=== PATIENT | male | born 1930 | race Caucasian/White ===

== ENCOUNTER → 2019-12-20 | Outpatient (CLI) | payer MEDICARE ==
--- NOTE | 2019-12-20 09:19 | RAD ---
Chest, PA and Lateral: Technique: PA and lateral views of the chest were obtained. History: Cough, congestion. Comparison: None. Findings: Moderate cardiomegaly. Median sternotomy wires identified. Changes of CABG. Faint airspace opacities identified in the bibasilar lungs. Moderate degenerative changes thoracic spine IMPRESSION: 1. Faint airspace opacities identified in the bibasilar lungs likely atelectasis or infiltrates. Follow-up to resolution. Electronically signed by: Amanuel Joseph MD (12/20/2019 9:16 AM) [id number]
== END | disposition home or self-care (01) ==
LOC: CT 08:41
PROVIDERS: ATTEND Nurse Practitioner Adult Health
DX: J98.4 Other disorders of lung (principal); I51.7 Cardiomegaly; J20.8 Acute bronchitis due to other specified organisms
CPT/HCPCS: 71046

== ENCOUNTER → 2020-09-28 | Outpatient (CLI) | payer MEDICARE ==
--- NOTE | 2020-09-28 15:43 | RAD ---
XR CHEST 2V History: Reason: SHORT OF BREATH, VQ SCAN / Spl. Instructions: / History: Comparison: Two-view chest, December 20, 2019. Findings: CABG changes. Stable moderate cardiomegaly. The pulmonary vasculature is congested. There is probably scarring in the lung bases. No focal airspace disease is seen. No pleural effusion or pneumothorax i s seen. There is no acute bone abnormality. 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 IMPRESSION: 1. Pulmonary vascular congestion. 2. Stable moderate cardiomegaly. Electronically signed by: Tai Diaz MD (09/28/2020 3:40 PM) [id number]
--- NOTE | 2020-09-28 15:47 | RAD ---
NUCLEAR MEDICINE PERFUSION ONLY SCAN History: Dyspnea, abnormal lab values. Comparison: Two-view chest September 28, 2020 and December 20, 2019. Technique: Perfusion portion performed after intravenous administration of 5.5 mCi Technetium 99m MAA . Multiple projection planar images of the lungs were obtained. Findings: Ventilation imaging is not performed due to aerosolized droplet precautions. Perfusion images demonstrate no segmental perfusion defects. IMPRESSION: Normal pulmonary perfusion. Negative for pulmonary embolism. Electronically signed by: Tai Diaz MD (09/28/2020 3:44 PM) [id number]
== END ==
LOC: NM 10:36
PROVIDERS: ATTEND Family Medicine
DX: J98.4 Other disorders of lung (principal); R09.89 Other specified symptoms and signs involving the circulatory and respiratory systems; R79.89 Other specified abnormal findings of blood chemistry; R06.02 Shortness of breath; I51.7 Cardiomegaly
CPT/HCPCS: 71046; 78580; A9540; 96374

== ENCOUNTER → 2020-10-20 | Outpatient (CLI) | payer MEDICARE, OTHER ==
--- NOTE | 2020-10-20 15:00 | CARD ---
MR#: [id number] Date of Study: 10/20/2020 Ordering Physician: TITO MONTANA, Referring Physician: TITO MONTANA, Tech: Rosa Bruno APPROVED REPORT EXAM: Two-dimensional and M-mode echocardiogram with Doppler and color Doppler. Other Information Quality : GoodHR: 77bpm INDICATION Atrial Fibrillation Surgery/Intervention CABG: RISK FACTORS Hypertension Hyperlipidemia 2D DIMENSIONS Left Atrium(2D)5.4 (1.6-4.0cm)IVSd1.3 (0.7-1.1cm) Aortic Root(2D)3.7 (2.0-3.7cm)LVDd5.6 (3.9-5.9cm) LVOT Diameter2.2 (1.8-2.4cm)PWd1.1 (0.7-1.1cm) LVDs4.4 (2.5-4.0cm)FS (%) 20.7 % SV63.5 mlLVEF(%)41.7 (>50%) Aortic Valve AoV Peak Michael.124.0cm/sAoV VTI26.6cm AO Peak GR.6.1mmHgLVOT Peak Michael.79.2cm/s LVOT VTI 15.81cmAO Mean GR.4mmHg TAYLOR (VMAX)2.00ai4KEC (VTI)2.21cm2 AI P 1/2 Aake1052zc Mitral Valve MV E Hlzwugvr82.7cm/sMV DECEL [id number] MV A Iufmwvqy57.4cm/sE/A Ratio2.5 Pulmonary Valve PV Peak Rhnewcas69.9cm/sPV Peak Grad.2mmHg Tricuspid Valve TR P. Kpaffdew325ih/sRAP [id number] TR Peak Gr.75tgHaLMDS36skOi LEFT VENTRICLE The left ventricle is normal size. There is mild to moderate concentric left ventricular hypertrophy. Severe hypokinesis of base to mid inferior and posterior posada. The Ejection Fraction is 35-40%. RIGHT VENTRICLE The right ventricle is mildly dilated. There is normal right ventricular wall thickness. ATRIA The left atrium is moderately dilated. The right atrium is moderately dilated. The interatrial septum is intact with no evidence for an atrial septal defect or patent foramen ovale as noted on 2-D or Do ppler imaging. AORTIC VALVE The aortic valve is thickened but opens well. Doppler and Color Flow revealed trace aortic regurgitat ion. There is no significant aortic valvular stenosis. MITRAL VALVE The mitral valve is normal in structure and function. There is no evidence of mitral valve prolapse. There is no mitral valve stenosis. Doppler and Color-flow revealed mild mitral regurgitation. TRICUSPID VALVE The tricuspid valve is normal in structure and function. Doppler and Color Flow revealed mild tricusp id regurgitation with an estiamted PAP of 31 mmHg. There is no tricuspid valve stenosis. PULMONIC VALVE The pulmonic valve is not well visualized. Doppler and Color Flow revealed trace pulmonic valvular re gurgitation. GREAT VESSELS The aortic root is normal in size. The IVC is normal in size and collapses >50% with inspiration. PERICARDIAL EFFUSION There is no evidence of significant pericardial effusion. Critical Notification Critical Value: No <Conclusion> Severe hypokinesis of base to mid inferior and posterior posada. The Ejection Fraction is 35-40%. The left atrium is moderately dilated. Mild mitral regurgitation. Mild tricuspid regurgitation with an estiamted PAP of 31 mmHg. There is no evidence of significant pericardial effusion. Signed by : Edwin Ennis, Electronically Approved : 10/20/2020 14:59:58
== END ==
LOC: ECHO 10:51
PROVIDERS: ATTEND Nuclear Medicine Nuclear Cardiology
DX: I08.1 Rheumatic disorders of both mitral and tricuspid valves (principal); I25.5 Ischemic cardiomyopathy
CPT/HCPCS: 93306

== ENCOUNTER 2021-04-05 17:50 | Inpatient (IN) | payer MEDICARE, OTHER ==
[~2021-04-05] VITALS: Ht 182.9 cm; Wt 90.4 kg
[2021-04-05] MEDS ORDERED: IV RINGERS SOLUTION,LACTATED 1,000 ML IV ONE ×2 (18:15→20:00)
--- NOTE | 2021-04-05 18:45 | PHYS DOC ---
Adult General Chief Complaint Chief Complaint: ALTERED MENTAL STATUS HPI HPI Patient is an 89-year-old male with a past medical history significant for RI, quadruple bypass in the , CHF, hypertension, hyperlipidemia, probable undiagnosed dementia who presents with family for chief complaint of confusion. States that earlier in the day with the family he had had a couple drinks of bourbon and a glass of wine. States that after the first 2 drinks of bourbon he was having trouble walking and was considerably more confused than usual. States today to help into the kitchen and then help him to the chair. States he occasionally drinks bourbon and has never acted like this before. States he is taking all his medications as prescribed and daughter handles medications. Denies any recent traumas, travels, illnesses, fevers, chest pain, shortness of breath, dysuria, hematuria, blood in the stool, nausea, vomiting. States has been eating and drinking normally for him. States he is making urine and stool normally for him. Review of Systems Review of Systems Review of systems otherwise unremarkable except noted in HPI Current Medications Current Medications Current Medications Medications (Trade) Dose Ordered Sig/Ketty Start Time Stop Time Status Last Admin Dose Admin Lactated Ringer's 1,000 ml @ 1,000 mls/hr 1X ONCE 04/05/21 18:15 04/05/21 19:14 UNV Physical Exam Physical Exam Constitutional: Well developed, well nourished, no acute distress, non-toxic appearance. [] HENT: Normocephalic, atraumatic, oropharynx moist, no oral exudates, Eyes: PERRLA, EOMI, conjunctiva normal, no discharge. [] Neck: Normal range of motion, no tenderness, supple, no stridor. [] Cardiovascular: Regular rate, irregular rhythm, systolic murmur Lungs & Thorax: Bilateral breath sounds with mild global Rales but good chest movement and good air movement Abdomen: Bowel sounds normal, soft, no tenderness, no masses, no pulsatile masses. [] Skin: Warm, dry, no erythema, no rash. [] Back: No tenderness, no CVA tenderness. [] Extremities: Neurovascular intact, no tenderness, no cyanosis, no clubbing, ROM intact, no edema. [] Neurologic: GCS of 15, alert and oriented to person and place but not time, able to sit and stand but seems off balance when walking. Psychologic: Affect normal, judgement normal, mood normal. [] Current Patient Data Lab Results Laboratory Tests Test 04/05/21 18:01 Glucose (Fingerstick) 183 mg/dL (70-99) H EKG EKG [] Radiology/Procedures Radiology/Procedures []ead CTA: ICA: No occlusion. Moderate calcified plaque within the carotid siphons. Mild multifocal narrowing. MCA: No stenosis, occlusion or aneurysm. TESFAYE: No stenosis, occlusion or aneurysm. SQL SSIS DEVELOPER: No stenosis, occlusion or aneurysm. Basilar artery: No stenosis, occlusion or aneurysm. Distal vertebral arteries: No stenosis, occlusion or aneurysm. Mild atheromatous plaque. Patent superior sagittal, straight, transverse and sigmoid venous sinuses. CT angiogram neck: Aortic arch: Mild atheromatous plaque within the aortic arch and branch vessels. Common carotid arteries: No stenosis, occlusion or dissection. Internal carotid arteries: Moderate atheromatous plaque within the left and mild within the right carotid bifurcations. Less than 50 percent narrowing of the proximal internal carotid arteries, left greater than right. No occlusion. External carotid arteries: Patent Vertebral arteries: Mild narrowing of the left vertebral artery origin due to calcified plaque. Imaged lung apices are unremarkable. Iatrogenic gas within the venous system. Postoperative changes right carotid endarterectomy. Enlarged right paratracheal lymph node measures 1.4 x 1.4 cm. Bones: Multilevel cervical spondylosis with advanced facet arthropathy. No high- grade canal narrowing. Multilevel neuroforaminal narrowing. Intervertebral fusion C3-C4 and C5-C6. Impression: 1. No arterial stenosis or occlusion within the head or neck. 2. Enlarged right peritracheal lymph node. Recommend follow-up. Electronically signed by: Ilya Taylor DO (04/05/2021 7:56 PM) [facility] Findings: Lower chest: Bilateral lower lobe bronchiectasis with fibrotic changes and grou ndglass opacities. Cardiomegaly. Coronary artery calcifications. Abdomen and pelvis: The liver, spleen, adrenal glands, and pancreas are unremarkable. Prior cholecystectomy. No biliary ductal dilatation. Small hypodense left mid renal lesion measures 0.4 cm (series 2 image 64). Right mid renal hypodense lesion measures 1.2 cm. Nonobstructing right intrarenal calculus. No hydronephrosis. Outpouching of the urinary bladder inferiorly into the urethra. Colonic diverticulosis. Normal appendix. No evidence of bowel obstruction. No pathologic lymphadenopathy. No ascites. Asymmetric enlargement of the right seminal vesicle. The prostate is enlarged measures 4.8 x 4.0 cm. Atheromatous plaque throughout the aorta and branch vessels. Bones: Multilevel lumbar spondylosis most prominent L4-5. Grade 1 anterolisthesis L4 on L5. Sclerotic lesion within the anterior sacrum measures 1.5 x 0.9 cm. Impression: 1. No acute intra-abdominal or pelvic pathology. 2. Sclerotic lesion within the sacrum, may represent bone island although indeterminate. Recommend correlation for history of malignancy. Bone scan can further evaluate. 3. Small bilateral renal lesions, may represent complicated cysts. Recommend ultrasound to confirm. 4. Bilateral lower lobe chronic fibrotic changes. Electronically signed by: Ilya Taylor DO (04/05/2021 8:12 PM) [facility] XR CHEST 1V History: Reason: cardiac workup, HYPOTENSION, HX QUADRUPLE BYPASS / Spl. Instructions: / History: Comparison: September 28, 2020 Findings: Interstitial thickening with ill-defined mid and bibasilar opacities. No pleural effusion. No pneumothorax. Enlarged cardiac size. Prior median sternotomy. Impression: 1. Interstitial thickening with ill-defined opacities, may represent pulmonary edema. 2. Cardiomegaly, unchanged. Electronically signed by: Ilya Taylor DO (04/05/2021 7:15 PM) [facility] Heart Score C/O Chest Pain: No Risk Factors: Risk Factors: DM, Current or recent (<one month) smoker, HTN, HLP, family histo ry of CAD, obesity. Risk Scores: Risk Factors: DM, Current or recent (<one month) smoker, HTN, HLP, family history of CAD, obesity. Course & Med Decision Making Course & Med Decision Making Patient is an 89-year-old male who presents with family for chief complaint of confusion more than usual and uneasy gait Vital signs notable for hypotension. Physical exam noted above. Patient placed on the monitor with IV access established and IV fluid resuscitation begun. EKG noted above with no STEMI but A. fib with low voltage and PVCs. Patient started on low-dose epinephrine to support pressure and cardiac output. Differential includes CHF exacerbation versus sepsis versus thyroid versus medication versus intoxication or combination thereof. Laboratory analysis notable for elevated lactate, currently otherwise unremarkable. Given patient's confusion, elevated lactate and hypotension, sepsis must be considered given vasodilation. Cultures obtained. Antibiotics given. Discussed all findings with family and recommended admission for continued evaluation and treatment of possible sepsis versus hypothyroidism versus other source of hypotension. Family grateful, verbalized understanding and agreed with plan of admission. [] Dragon Disclaimer Dragon Disclaimer This electronic medical record was generated, in whole or in part, using a voice recognition dictation system. Departure Departure: Impression: Primary Impression: Confused Additional Impressions: Sepsis Pneumonia Disposition: 02 SHORT TERM HOSPITAL Condition: IMPROVED Referrals: NICHOLAS BECKETT MD (PCP) Problem Qualifiers GUERO ZAVALETA MD Apr 05, 2021 18:45
[2021-04-05 18:51] LABS: BASO # 0.1 x10^3/uL (0.0-0.2); BASO % 1 % (0-3); EOS # 0.2 x10^3/uL (0.0-0.7); EOS % 2 % (0-3); HEMATOCRIT 43.4 % (39.0-53.0); HEMOGLOBIN 14.4 g/dL (13.0-17.5); LYMPH # 1.7 x10^3/uL (1.0-4.8); LYMPH % 19 % (24-48); MEAN CORPUSCULAR HEMOGLOBIN 29 pg (25-35); MEAN CORPUSCULAR HGB CONC 33 g/dL (31-37); MEAN CORPUSCULAR VOLUME 88 fL (79-100); MONO # 0.7 x10^3/uL (0.0-1.1); MONO % 8 % (0-9); NEUT # 6.4 x10^3uL (1.8-7.7); NEUT % 70 % (31-73); PLATELET COUNT 223 x10^3/uL (140-400); RED BLOOD COUNT 4.93 x10^6/uL (4.30-5.70); RED CELL DISTRIBUTION WIDTH 15.5 % (11.5-14.5); WHITE BLOOD COUNT 9.1 x10^3/uL (4.0-11.0)
[2021-04-05] MEDS ORDERED: IOHEXOL 350 MG/ML 100 ML VIAL. ONE (18:59)
[2021-04-05] MEDS ORDERED: CONTRAST GIVEN. MC PRN (19:00)
[2021-04-05] MEDS ORDERED: IOHEXOL 350 MG/ML 100 ML VIAL. IV ONE (19:00)
[2021-04-05] MEDS ORDERED: EPINEPHrine 5 MG in IV NORMAL SALINE 250ML 250 ML IV PRN (19:15)
--- NOTE | 2021-04-05 19:17 | RAD ---
XR CHEST 1V History: Reason: cardiac workup, HYPOTENSION, HX QUADRUPLE BYPASS / Spl. Instructions: / History: Comparison: September 28, 2020 Findings: Interstitial thickening with ill-defined mid and bibasilar opacities. No pleural effusion. No pneumot horax. Enlarged cardiac size. Prior median sternotomy. Impression: 1. Interstitial thickening with ill-defined opacities, may represent pulmonary edema. 2. Cardiomegaly, unchanged. Electronically signed by: Ilya Taylor DO (04/05/2021 7:15 PM) [facility]
[2021-04-05 19:21] LABS: CREATININE 1.3 mg/dL (0.7-1.3)
[2021-04-05 19:31] LABS: ALBUMIN 3.4 g/dL (3.4-5.0); ALBUMIN/GLOBULIN RATIO 0.9 (1.0-1.7); TOTAL BILIRUBIN 0.5 mg/dL (0.2-1.0)
--- NOTE | 2021-04-05 19:31 | RAD ---
CT HEAD/BRAIN WO History: Reason: CONFUSION / Spl. Instructions: / History: Comparison: None. Technique: Noncontrast CT imaging was performed of the head. Exposure: One or more of the following individualized dose reduction techniques were utilized for thi s examination: 1. Automated exposure control 2. Adjustment of the mA and/or kV according to patient size 3. Use of iterative reconstruction technique. Findings: No intracranial hemorrhage. No mass effect. No hydrocephalus. Brain parenchymal volume loss. Mild foci of decreased attenuation within the hemispheric white matter , most often due to chronic microvascular ischemia. Intracranial atheromatous calcifications. Foci of gas within the right temporal and car coupler regions may relate to intravascular iatrogenic g as. Imaged orbits are unremarkable. Imaged paranasal sinuses and mastoid air cells are clear. No acute ca lvarial fracture. Impression: 1. No acute intracranial abnormality. Electronically signed by: Ilya Taylor DO (04/05/2021 7:28 PM) [facility]
--- NOTE | 2021-04-05 19:58 | RAD ---
CTA HEAD AND NECK W/WO CONTRAST History:Reason: confused / Spl. Instructions: OMNI 350 100CC GIVEN / History: Technique: After bolus of intravenous contrast, volumetric CT data acquisition was acquired of the he ad and neck. Multiplanar reconstruction images to include MIP and 3-D reconstruction images are submi tted. Exposure: One or more of the following individualized dose reduction techniques were utilized for thi s examination: 1. Automated exposure control 2. Adjustment of the mA and/or kV according to patient size 3. Use of iterative reconstruction technique. Comparison: Noncontrast head CT April 05, 2021. Any determination of stenosis is based on NASCET criteria. Head CTA: ICA: No occlusion. Moderate calcified plaque within the carotid siphons. Mild multifocal narrowing. MCA: No stenosis, occlusion or aneurysm. TESFAYE: No stenosis, occlusion or aneurysm. NON FERROUS MATERIAL HANDLER: No stenosis, occlusion or aneurysm. Basilar artery: No stenosis, occlusion or aneurysm. Distal vertebral arteries: No stenosis, occlusion or aneurysm. Mild atheromatous plaque. Patent superior sagittal, straight, transverse and sigmoid venous sinuses. CT angiogram neck: Aortic arch: Mild atheromatous plaque within the aortic arch and branch vessels. Common carotid arteries: No stenosis, occlusion or dissection. Internal carotid arteries: Moderate atheromatous plaque within the left and mild within the right car otid bifurcations. Less than 50 percent narrowing of the proximal internal carotid arteries, left gre ater than right. No occlusion. External carotid arteries: Patent Vertebral arteries: Mild narrowing of the left vertebral artery origin due to calcified plaque. Imaged lung apices are unremarkable. Iatrogenic gas within the venous system. Postoperative changes right carotid endarterectomy. Enlarged right paratracheal lymph node measures 1.4 x 1.4 cm. Bones: Multilevel cervical spondylosis with advanced facet arthropathy. No high-grade canal narrowing . Multilevel neuroforaminal narrowing. Intervertebral fusion C3-C4 and C5-C6. Impression: 1. No arterial stenosis or occlusion within the head or neck. 2. Enlarged right peritracheal lymph node. Recommend follow-up. Electronically signed by: Ilya Taylor DO (04/05/2021 7:56 PM) [facility]
--- NOTE | 2021-04-05 20:14 | RAD ---
CT ABDOMEN+PELVIS WO History: Reason: confused / Spl. Instructions: / History: Technique: Noncontrast examination of the abdomen and pelvis. Coronal and sagittal reconstructions we re performed. Exposure: One or more of the following individualized dose reduction techniques were utilized for thi s examination: 1. Automated exposure control 2. Adjustment of the mA and/or kV according to patient size 3. Use of iterative reconstruction technique. Comparison: None Findings: Lower chest: Bilateral lower lobe bronchiectasis with fibrotic changes and groundglass opacities. Car diomegaly. Coronary artery calcifications. Abdomen and pelvis: The liver, spleen, adrenal glands, and pancreas are unremarkable. Prior cholecyst ectomy. No biliary ductal dilatation. Small hypodense left mid renal lesion measures 0.4 cm (series 2 image 64). Right mid renal hypodense lesion measures 1.2 cm. Nonobstructing right intrarenal calculus. No hydronephrosis. Outpouching of t he urinary bladder inferiorly into the urethra. Colonic diverticulosis. Normal appendix. No evidence of bowel obstruction. No pathologic lymphadenopa thy. No ascites. Asymmetric enlargement of the right seminal vesicle. The prostate is enlarged measur es 4.8 x 4.0 cm. Atheromatous plaque throughout the aorta and branch vessels. Bones: Multilevel lumbar spondylosis most prominent L4-5. Grade 1 anterolisthesis L4 on L5. Sclerotic lesion within the anterior sacrum measures 1.5 x 0.9 cm. Impression: 1. No acute intra-abdominal or pelvic pathology. 2. Sclerotic lesion within the sacrum, may represent bone island although indeterminate. Recommend c orrelation for history of malignancy. Bone scan can further evaluate. 3. Small bilateral renal lesions, may represent complicated cysts. Recommend ultrasound to confirm. 4. Bilateral lower lobe chronic fibrotic changes. Electronically signed by: Ilya Taylor DO (04/05/2021 8:12 PM) [facility]
[2021-04-05 21:18] LABS: BILIRUBIN,URINE NEG (NEG); CLARITY,URINE CLEAR; COLOR,URINE YELLOW; GLUCOSE,URINE NEG (NEG)
[2021-04-05 21:19] LABS: BACTERIA,URINE 0 /HPF (0-FEW); NITRITE,URINE NEG (NEG); RBC,URINE 0 /HPF (0-2); SQUAMOUS EPITHELIAL CELL,UR OCC /LPF; UROBILINOGEN,URINE 0.2 mg/dL (0.2 mg/dL); WBC,URINE 0 /HPF (0-4)
[2021-04-05] MEDS ORDERED: APIX5TAB5 PO (23:41)
[2021-04-05] MEDS ORDERED: METO-239 PO (23:42)
[2021-04-05] MEDS ORDERED: NIAC500C6 PO (23:42)
[2021-04-05] MEDS ORDERED: ACET500T68 PO (23:42)
[2021-04-05] MEDS ORDERED: TORS20TA2 PO (23:42)
[2021-04-05] MEDS ORDERED: OMEP20CA16 PO (23:42)
[2021-04-05] MEDS ORDERED: LISI-517 PO (23:42)
[2021-04-05] MEDS ORDERED: OMEG1CAP38 PO (23:42)
[2021-04-05] MEDS ORDERED: NITR0.4T22 SL (23:42)
[2021-04-05] MEDS ORDERED: MULT-245 PO (23:42)
[2021-04-05] MEDS ORDERED: MELA3TAB43 PO (23:42)
[2021-04-05] MEDS ORDERED: EZET1TAB35 PO (23:42)
[2021-04-05] MEDS ORDERED: SPIR25TA5 PO (23:42)
[2021-04-06 00:15] VITALS: BP 102/50
--- NOTE | 2021-04-06 01:00 | NUR ---
ADMISSION NOTE / NURSING Admitted pt to [facility] via cart from ED in stable condition; report rec'd from Brand Engineer Josiah in ED prior to pt arrival; VSS, Sats 92% or greater on room air, lungs CTA bilaterally; denies cough or SOA; afebrile; alert, talkative; oriented to self/place/time, however, confused as to events of the day; states he does not remember coming to ED, denies any c/o or recent change in condition; at one point he states he thought he was coming to the hospital to see his daughter; in ED family reported pt required assist with ambulation today and increased forgetfulness, both of which are atypical for him; requires frequent reminders and often forgets within moments of discussion; monitor worker on, shows afib with frequent PVC's, onset is not new; saline lock patent to right AC with transparent drsg CDI; home medications logged and sent to pharmacy as per protocol; pocketknife packed in valuables envelope and given to pipe finishing supervisor for placement in safe; admission assessment complete and hx taken to the best of pt's ability; room orientation given, plan of care discussed; siderails up x3, bed alarm on for safety; resting in bed at present with no voiced needs or concerns at this time.
--- NOTE | 2021-04-06 06:10 | NUR ---
NURSING NOTE Has slept intermittently since approx 0200; voids per urinal without difficulty; occasional non-productive cough noted; awake at this time, resting without c/o or concern.
[2021-04-06 06:11] VITALS: BP 107/54
--- NOTE | 2021-04-06 06:33 | EKG ---
[address] [address] Test Date: 2021-04-05 Test Time: 18:01:46 Pat Name: MIKA NICOLAS Department: Room: 107 A Gender: M Animal Health Technician: [facility] : [id number] Requested By: GUERO ZAVALETA Order Number: [id number] Reading MD: Edwin Ennis Measurements Intervals [place] Rate: 75 P: RI: QRS: -56 QRSD: 104 T: -33 QT: 404 QTc: 454 Interpretive Statements ATRIAL FIBRILLATION VENTRICULAR PREMATURE COMPLEX(ES) ABNORMAL LEFT AXIS DEVIATION LOW LIMB LEAD VOLTAGE QRS(T) CONTOUR ABNORMALITY CONSISTENT WITH INFERIOR INFARCT PROBABLY OLD ABNORMAL ECG Electronically Signed On 04-07-2021 11:55:54 CDT by Edwin Ennis
[2021-04-06] MEDS ORDERED: NITROGLYCERIN SUBLINGUAL 0.4 MG BOTTLE OF 25. SL PRN (07:30)
[2021-04-06] MEDS ORDERED: ACETAMINOPHEN 500 MG TABLET PO PRN (07:30)
--- NOTE | 2021-04-06 07:53 | PDOC2 ---
RENATA CARIAS YARN EXAMINER SKEINS 04/06/21 0753: CARDIAC CONSULT DATE OF CONSULT DOS: DATE: 04/06/21 TIME: 07:49 REASON FOR CONSULT Reason for Consult CHF REFERRING PHYSICIAN Referring Physician Dr. Gonzalez SOURCE Source: Chart review, Patient HPI History of Present Illness This is a 89 yo male who presented secondary to altered mental status. Patient cannot specifically tell me what brought him into the hospital other than he was "sick". Unable to elaborate on this. He denies experiencing any chest pain, dizziness, diaphoresis, shortness of breath, or nausea/vomiting. Also denies any difficulty ambulating. Per review of chart, family reports patient had a couple drinks of bourbon and a glass of wine. After 2nd drink of bourbon, he became confused and had difficulty walking. Reported he occasionally drinks bourbon and has never had this happen before. Family reports he has been more confused over the last couple of months. No reports of chest pain, palpitations, dizziness, diaphoresis. Family reports he will always respond with the answer "no". Patient wanting to be discharged as he does not feel he needs to be in the hospital. Patient denies any history of AFIB, but Eliquis noted on home med list. EKG/tele shows AFIB. Went into AFIB with RVR this morning. Concerns for possibly VT noted. Tele reviewed and showed AFIB with aberrancy. No VT noted. Plans for patient to transfer to [facility] for further evaluation and treatment. PAST MEDICAL HISTORY Cardiovascular: AFIB, CAD, CHF, HTN, hyperipidemia, Other (PAD) GI: GERD PAST SURGICAL HISTORY Past Surgical History: CABG FAMILY HISTORY Family History: Family History Unknown SOCIAL HISTORY Smoke: No ALCOHOL: other (has 1 glass of bourbon nightly ) Drugs: None Lives: with Family CURRENT MEDICATIONS Current Medications Current Medications Lactated Ringer's 1,000 ml @ 1,000 mls/hr 1X ONCE IV Last administered on 04/05/21at 18:37; Start 04/05/21 at 18:15; Stop 04/05/21 at 19:14; Status DC Iohexol (Omnipaque 350 Mg/ml) 100 ml 1X ONCE IV Last administered on 04/05/21at 19:27; Start 04/05/21 at 19:00; Stop 04/05/21 at 19:01; Status DC Info (Do NOT chart on this entry -- for MONITORING) 1 each PRN DAILY PRN MC SEE COMMENTS; Start 04/05/21 at 19:00; Stop 04/07/21 at 18:59 Iohexol (Omnipaque 350 Mg/ml) 100 ml STK-MED ONCE .ROUTE ; Start 04/05/21 at 18:59; Stop 04/05/21 at 18:59; Status DC Epinephrine HCl 5 mg/Sodium Chloride 255 ml @ 15.3 mls/hr CONT PRN IV SEE I/O RECORD; Start 04/05/21 at 19:15 Lactated Ringer's 1,000 ml @ 1,000 mls/hr 1X ONCE IV Last administered on 04/05/21at 20:15; Start 04/05/21 at 20:00; Stop 04/05/21 at 20:59; Status DC Levofloxacin/ Dextrose 150 ml @ 100 mls/hr 1X ONCE IV Last administered on 04/05/21at 20:29; Start 04/05/21 at 20:00; Stop 04/05/21 at 21:29; Status DC Acetaminophen (Tylenol) 500 mg PRN Q6HRS PRN PO pain or fever; Start 04/06/21 at 07:30 Lisinopril (Prinivil) 5 mg DAILY PO ; Start 04/06/21 at 09:00 Metoprolol Succinate (Toprol Xl) 12.5 mg DAILY PO ; Start 04/06/21 at 09:00 Nitroglycerin (Nitrostat) 0.4 mg PRN Q5MIN PRN SL CHEST PAIN; Start 04/06/21 at 07:30 Spironolactone (Aldactone) 12.5 mg DAILY PO ; Start 04/06/21 at 09:00 Torsemide (Demadex) 20 mg DAILY PO ; Start 04/06/21 at 09:00; Status UNV Non-Formulary Medication (Apixaban (Eliquis)) 5 mg BID PO ; Start 04/06/21 at 09:00; Status UNV Non-Formulary Medication (Ezetimibe/ Simvastatin (Vytorin 10-40 Mg Tablet)) 1 tab DAILY PO ; Start 04/06/21 at 09:00; Status UNV Non-Formulary Medication (Melatonin ) 1 tab QHS PO ; Start 04/06/21 at 21:00; Status UNV Multivitamins/ Calcium (Thera-M Plus) 1 tab DAILY PO ; Start 04/06/21 at 09:00 Pantoprazole Sodium (Protonix) 40 mg DAILYAC PO ; Start 04/06/21 at 09:00 Azithromycin (Zithromax) 250 mg DAILY PO ; Start 04/07/21 at 09:00 Azithromycin (Zithromax) 500 mg 1X ONCE PO ; Start 04/06/21 at 09:00; Stop 04/06/21 at 09:01 Furosemide (Lasix) 40 mg DAILY IVP ; Start 04/06/21 at 09:00 Levofloxacin/ Dextrose 100 ml @ 100 mls/hr Q24H IV ; Start 04/06/21 at 07:45; Status UNV Active Scripts Active Reported Acetaminophen 500 Mg Tablet 1 Tab PO PRN Q6HRS PRN 15 Days Multi Vitamin Daily (Multivitamin) 1 Each Tablet 1 Tab PO DAILY 30 Days Torsemide 20 Mg Tablet 1 Tab PO DAILY Spironolactone 25 Mg Tablet 0.5 Tab PO DAILY Omeprazole 20 Mg Capsule.dr 1 Cap PO DAILY [place] 3 Fish Oil Softgel ([place]-3 Fatty Acids/Fish Oil) 1 Each Capsule.dr 1 Each PO DAILY NITROGLYCERIN SubLingual (Nitroglycerin) 0.4 Mg Tab.subl 0.4 Mg SL PRN Q5MIN PRN Niacin 500 Mg Capsule (Niacin (Inositol Niacinate)) 500 Mg Capsule 1 Cap PO DAILY 30 Days Melatonin 3 Mg Tab.rapdis 1 Tab PO QHS 30 Days Metoprolol Succinate ( Xl ) (Metoprolol Succinate) 25 Mg Tab.er.24h 0.5 Tab PO DAILY 7 Days Lisinopril 5 Mg Tablet 1 Tab PO DAILY Vytorin 10-40 Mg Tablet (Ezetimibe/Simvastatin) 1 Each Tablet 1 Tab PO DAILY 30 Days Eliquis (Apixaban) 5 Mg Tab.ds.pk 5 Mg PO BID 14 Days ALLERGIES Allergies: Coded Allergies: No Known Drug Allergies (Unverified , 04/05/21) ROS Review of Systems 14 point ROS conducted with pertinent positives noted above in HPI, although limited due to confusion. PHYSICAL EXAM General: Alert, Cooperative, No acute distress, Other (oriented to person and place ) HEENT: Atraumatic Lungs: Clear to auscultation, Other (diminished bases ) Heart: Other (AFIB, rate controlled ) Abdomen: Soft Extremities: No edema, Normal pulses Skin: No breakdown Neuro: Normal speech, Sensation intact Psych/Mental Status: Mood NL, Other (forgetful ) MUSCULOSKELETAL: Osteoarthritic changes both hands VITALS Vital Signs Vital Signs Date Time Temp Pulse Resp B/P (MAP) Pulse Ox O2 Delivery O2 Flow Rate FiO2 04/06/21 06:11 98.0 78 20 107/54 (71) 92 Room Air LABS LABS Laboratory Tests Test 04/05/21 18:01 04/05/21 18:05 04/05/21 18:15 04/05/21 20:50 Glucose (Fingerstick) 183 mg/dL (70-99) White Blood Count 9.1 x10^3/uL (4.0-11.0) Red Blood Count 4.93 x10^6/uL (4.30-5.70) Hemoglobin 14.4 g/dL (13.0-17.5) Hematocrit 43.4 % (39.0-53.0) Mean Corpuscular Volume 88 fL (79-100) Mean Corpuscular Hemoglobin 29 pg (25-35) Mean Corpuscular Hemoglobin Concent 33 g/dL (31-37) Red Cell Distribution Width 15.5 % (11.5-14.5) Platelet Count 223 x10^3/uL (140-400) Neutrophils (%) (Auto) 70 % (31-73) Lymphocytes (%) (Auto) 19 % (24-48) Monocytes (%) (Auto) 8 % (0-9) Eosinophils (%) (Auto) 2 % (0-3) Basophils (%) (Auto) 1 % (0-3) Neutrophils # (Auto) 6.4 x10^3uL (1.8-7.7) Lymphocytes # (Auto) 1.7 x10^3/uL (1.0-4.8) Monocytes # (Auto) 0.7 x10^3/uL (0.0-1.1) Eosinophils # (Auto) 0.2 x10^3/uL (0.0-0.7) Basophils # (Auto) 0.1 x10^3/uL (0.0-0.2) Sodium Level 140 mmol/L (136-145) Potassium Level 4.0 mmol/L (3.5-5.1) Chloride Level 102 mmol/L (98-107) Carbon Dioxide Level 25 mmol/L (21-32) Anion Gap 13 (6-14) Blood Urea Nitrogen 21 mg/dL (8-26) Creatinine 1.3 mg/dL (0.7-1.3) Estimated GFR (Cockcroft-Gault) 52.0 BUN/Creatinine Ratio 16 (6-20) Glucose Level 120 mg/dL (70-99) Calcium Level 9.0 mg/dL (8.5-10.1) Total Bilirubin 0.5 mg/dL (0.2-1.0) Aspartate Amino Transf (AST/SGOT) 26 U/L (15-37) Alanine Aminotransferase (ALT/SGPT) 29 U/L (16-63) Alkaline Phosphatase 85 U/L (46-116) Troponin I Quantitative 0.038 ng/mL (0-0.055) VF-Iob-G-Type Natriuretic Peptide 4209 pg/mL (0-449) Total Protein 7.0 g/dL (6.4-8.2) Albumin 3.4 g/dL (3.4-5.0) Albumin/Globulin Ratio 0.9 (1.0-1.7) Prothrombin Time 10.8 SEC (9.4-11.4) Prothromb Time International Ratio 1.0 (0.9-1.1) Activated Partial Thromboplast Time 30 SEC (23-33) D-Dimer (Rama) 0.40 mg/L (0.00-0.50) Lactic Acid Level 3.2 mmol/L (0.4-2.0) Urine Collection Type Unknown Urine Color Yellow Urine Clarity Clear Urine pH 5.0 Urine Specific [place] <=1.005 Urine Protein Neg (NEG-TRACE) Urine Glucose (UA) Neg mg/dL (NEG) Urine Ketones (Stick) Trace mg/dL (NEG) Urine Blood Neg (NEG) Urine Nitrite Neg (NEG) Urine Bilirubin Neg (NEG) Urine Urobilinogen Dipstick 0.2 mg/dL (0.2 mg/dL) Urine Leukocyte Esterase Neg (NEG) Urine RBC 0 /HPF (0-2) Urine WBC 0 /HPF (0-4) Urine Squamous Epithelial Cells Occ /LPF Urine Bacteria 0 /HPF (0-FEW) EKG EKG 02/16/21 - HOLTER WEARABLE ECG MONITOR CONNECT + SCAN Interpretation Summary Indication: Atrial Fibrillation Analysis time: 52 hr Mean HR: 85 bpm Maximum. HR: 82 bpm. Minimum HR: 34 bpm Ventricular prematurities burden of 103,104 ~ 39% may be overestimated in the setting of A. fib Pauses greater than 2 sec: 33 Longest pause: 2,538ms sec, post PVCs. There is atrial fibrillation seen. There is atrial flutter seen. ECHOCARDIOGRAM Echocardiogram 10/26/19 - 2-D + DOPPLER ECHOCARDIOGRAM Interpretation Summary Mildly dilated left ventricle with moderately reduced systolic function. LVEF around 35%. Segmental wall motion abnormalities as described below. Asymmetrical hypertrophy of the interventricular septum with maximum septal thickness of 1.9 cm at the base. Moderately dilated right ventricle with mildly reduced systolic function. Severely dilated left atrium and moderately dilated right atrium. Markedly elevated central venous pressure (>15 mm Hg). Moderate mitral valve regurgitation. Mild tricuspid and pulmonary valve regurgitation. The aorta is mildly dilated at root. No pericardial effusion. Elevated estimated peak systolic PA pressure of 44 mmHg. No previous echocardiogram for comparison <Conclusion> Severe hypokinesis of base to mid inferior and posterior posada. The Ejection Fraction is 35-40%. The left atrium is moderately dilated. Mild mitral regurgitation. Mild tricuspid regurgitation with an estiamted PAP of 31 mmHg. There is no evidence of significant pericardial effusion. DATE: 10/20/20 1210 STRESS TEST Stress Test 10/26/19 - Procedure: D-SPECT MULTI GATED THALLIUM REGADENOSON MPI STRESS TEST SUMMARY/OPINION: This study is abnormal due to the depressed global ejection fraction but in the presence of atrial fibrillation quantification of ejection fraction is usually underestimated. All myocardial segments are viable although there may be some limited scar at the base of the inferolateral wall in the circumflex territory. Other high risk indicators are not noted. The patient appears to be in atrial fibrillation with a variable ventricular response and occasional PVC throughout the study. ASSESSMENT/PLAN Assessment/Plan 1. Encephalopathy; CT head without acute findings 2. Mild acute on chronic systolic CHF; appears compensated 3. Ischemic cardiomyopathy; echo 10/22 with LVEF 35-40% 4. CAD s/p remote CABG. CP free. Follows with Dr. Wesley FERMIN 5. H/o hypertension with present hypotension 6. Hyperlipidemia 7. PAFIB with present RVR; on metoprolol for rate control. Chronic OAC with Eliquis. 8. Bradycardia, ? tachybrady; noted with bradycardia overnight with HR lowest 30. No significant pauses. Recent event monitor conducted with results noted above 9. Arrhythmia; h/o frequent PVC's. tele noted with frequent PVC's. Review of tele also shows period of AFIB with aberrancy. No VT. Follows with [facility] EP services, Dr. Arciniega 10. Chronic RBBB Recommendations Trend troponin Lipids TSH, Mg Resume secondary prevention Metoprolol IVP x1 now Unable to uptitrate metoprolol due to periods of bradycardia Consider addition of Amiodarone therapy for rhythm maintenance. Will d/w primary early head start teacher Consider further ischemic evaluation depending upon goals of care. ROSANGELA KINGSLEY MD 04/06/21 1809: CARDIAC CONSULT ASSESSMENT/PLAN Assessment/Plan Patient seen and examined. Agree with above COMPREHENSIVE ADVISOR note. Supportive care. Discussed with family. RENATA CARIAS APRN Apr 06, 2021 07:53 ROSANGELA KINGSLEY MD Apr 06, 2021 18:09
[2021-04-06] MEDS ORDERED: APIXABAN 5 MG TABLET. PO SCH (09:00)
[2021-04-06] MEDS ORDERED: LISINOPRIL 5 MG TABLET. PO SCH (09:00)
[2021-04-06] MEDS ORDERED: PANTOPRAZOLE 40 MG TABLET. PO SCH (09:00)
[2021-04-06] MEDS ORDERED: FUROSEMIDE 40 MG/4 ML VIAL IVP SCH (09:00)
[2021-04-06] MEDS ORDERED: EZETIMIBE PO SCH (09:00)
[2021-04-06] MEDS ORDERED: AZITHROMYCIN 250 MG TABLET. PO ONE (09:00)
[2021-04-06] MEDS ORDERED: METOPROLOL SUCC 24HR ER 25 MG TAB.ER.24H. PO SCH (09:00)
[2021-04-06] MEDS ORDERED: SIMVASTATIN 40 MG TABLET. PO SCH (09:00)
[2021-04-06] MEDS ORDERED: METOPROLOL TARTRATE 5 MG/5 ML VIAL. IV ONE (09:00)
[2021-04-06] MEDS ORDERED: EZETIMIBE 10 MG TABLET PO SCH (09:00)
[2021-04-06] MEDS ORDERED: SPIRONOLACTONE 25 MG TABLET PO SCH (09:00)
[2021-04-06] MEDS ORDERED: SIMVASTATIN PO SCH (09:00)
[2021-04-06] MEDS ORDERED: MULTIVITAMIN with MINERAL TABLET. PO SCH (09:00)
[2021-04-06] MEDS ORDERED: TORSEMIDE 20 MG TABLET. PO SCH (09:00)
[2021-04-06 09:01] LABS: HEMATOCRIT 42.3 % (39.0-53.0); HEMOGLOBIN 14.3 g/dL (13.0-17.5); RED BLOOD COUNT 4.86 x10^6/uL (4.30-5.70); RED CELL DISTRIBUTION WIDTH 15.6 % (11.5-14.5)
--- NOTE | 2021-04-06 09:01 | EKG ---
[address] [address] Test Date: 2021-04-06 Test Time: 08:51:35 Pat Name: MIKA NICOLAS Department: Room: 107 A Gender: M Flow Nurse: : 1930 Requested By: NICHOLAS BECKETT Order Number: [id number] Reading MD: Edwin Ennis Measurements Intervals [place] Rate: 93 P: MO: QRS: -140 QRSD: 106 T: 137 QT: 392 QTc: 490 Interpretive Statements ATRIAL FIBRILLATION VENTRICULAR PREMATURE COMPLEX(ES) QRS(T) CONTOUR ABNORMALITY CONSISTENT WITH HIGH LATERAL INFARCT AGE UNDETERMINED CONSISTENT WITH INFERIOR INFARCT PROBABLY OLD ABNORMAL ECG Electronically Signed On 04-07-2021 11:51:39 CDT by Edwin Ennis
[2021-04-06 09:17] LABS: ALBUMIN 3.2 g/dL (3.4-5.0); ALBUMIN/GLOBULIN RATIO 0.9 (1.0-1.7); CALCIUM 8.7 mg/dL (8.5-10.1); CREATININE 1.1 mg/dL (0.7-1.3); MAGNESIUM 1.8 mg/dL (1.8-2.4); POTASSIUM 4.2 mmol/L (3.5-5.1); TOTAL BILIRUBIN 0.8 mg/dL (0.2-1.0); TOTAL PROTEIN 6.7 g/dL (6.4-8.2)
--- NOTE | 2021-04-06 10:33 | HP ---
ADMIT DATE: 04/06/2021 HISTORY OF PRESENT ILLNESS: An 89-year-old male came in through the Emergency Room and apparently the patient has been having trouble walking, seems a little bit more confused than usual. The patient came in through the Emergency Room, although he denied multiple things. The patient does have dementia and a chest x-ray was obtained, possible pulmonary edema versus some type of a pneumonic process. He did have a lactic acid of 3.2, elevated BNP of 4200 and as a result of this the patient was admitted. Also noted was the fact that the patient had runs of possible aberrant atrial fib or possible premature ventricular contractions or V-tach for that matter. He has been followed at , but unable to get him transferred down there at the present time. The patient will be seen by Cardiology here, was admitted for multiple issues of cardiac arrhythmias, pneumonia and CHF. PAST MEDICAL HISTORY: Very extensive including that of he has dementia, Alzheimer type, cardiac disorders, heart attack, congestive heart failure, cardiac arrhythmias, chronic AFib as well as episodic V-tach and PVCs, cardiomyopathy, peripheral vascular disease, anticoagulant therapy on Eliquis, hypercholesterolemia, hypertension. The patient has a history of GERD. Obviously immunizations for recent infection, influenza vaccination unknown. He has had COVID vaccine. MEDICATIONS: Include from Cardiology: Eliquis 5 mg b.i.d., Vytorin 10/40, niacin 500, omega-3, nitroglycerin, metoprolol succinate, lisinopril 5, spironolactone 25, furosemide 20, Prilosec 20, multivitamin and melatonin. ALLERGIES: He has no known drug allergies. SOCIAL HISTORY: The patient denies smoking, alcohol or drug use. Retired . Full code. REVIEW OF SYSTEMS: As indicated, the patient denies any headaches, visual changes, is a poor historian; however, not able to keep his story straight. The patient otherwise denies any visual change, blurred vision, double vision. Notes occasionally some palpitations, but denies most problems with that. He denies shortness of breath, chest pain, abdominal pain. Denies any nausea, vomiting, melena, hematochezia, hematemesis. Neurologically he denies much, but obviously has a significant deficit in his memory ability. PHYSICAL EXAMINATION: VITAL SIGNS: Blood pressure 147/84, respiratory rate 20, pulse 78, afebrile. The patient 92% on room air. GENERAL: The patient is alert, somewhat oriented at times and then loses it with his memory. HEENT: Otherwise eyes are PERRL. Mouth and throat basically normal. Poor dentition. NECK: Supple without JVD, carotid bruit or thyroidmegaly. LUNGS: Diminished. Some crackles noted in the bases. CARDIOVASCULAR: Irregularly irregular rhythm with occasional dropped beat and pause. The patient has a 1/6 systolic ejection murmur. ABDOMEN: Soft, nontender, no rebound or guarding. Positive bowel sounds, no hepatosplenomegaly. EXTREMITIES: No clubbing, cyanosis or edema. NEUROLOGIC: The patient alert, coherent at times and other times confused, not giving any answer, poor historian basically. LABORATORY DATA: The patient's sodium, potassium 139 and 4.2. BUN, creatinine 16 and 1.1. Glucose 153. Lactic acid 3.2. BNP 4200. Albumin of 3.2. Hemoglobin, hematocrit 14 and 42, basically stable there. Chest x-ray shows possible pulmonary edema. The patient also had images of his head, showed no intracranial abnormalities there. Otherwise, the patient also had a CT of his abdomen and pelvis, did show sclerotic lesion within the sacrum, may represent bone island, although they recommended and would get a bone scan, either inpatient or outpatient. Bilateral renal lesions, recommended renal ultrasound to be done, either inpatient or outpatient. Bilateral lobe chronic fibrotic changes to his lungs. IMPRESSION: Ventricular tachycardia, ventricular arrhythmias, acute on top of chronic diastolic heart failure, last ejection fraction approximately 35-40%. The patient has Alzheimer dementia type and sclerotic lesion in the sacrum, rule out malignancy, has been having weight loss of late, poor appetite, elevated lactic acid, possible pneumonia, moderate protein malnutrition. The patient continued to be monitored carefully, make further evaluation on him. We will try to get him transferred to a higher level of care as Cardiology has recommended possibly amiodarone treatment, which shall be need to be monitored and our ICU here is not available at this time. PATY DR: Jennifer TID: [id number]
[2021-04-06 11:48] VITALS: BP 107/55
--- NOTE | 2021-04-06 13:30 | NUR ---
Nursing note report called tpo tyree at [facility] at 1020. pt left hospital at 1300 via ems.
[2021-04-06 18:58] LABS: THYROID STIM HORMONE (TSH) 1.711 uIU/mL (0.358-3.740)
[2021-04-06] MEDS ORDERED: MELATONIN 3 MG TABLET PO SCH (21:00)
[2021-04-07] MEDS ORDERED: AZITHROMYCIN 250 MG TABLET. PO SCH (09:00)
== END 2021-04-06 13:49 | disposition short-term general hospital (02) | DRG 871 ==
LOC: ER 17:50 → 1 SOUTH 21:28
PROVIDERS: ADMIT Family Medicine; ATTEND Family Medicine
DX: A41.9 Sepsis, unspecified organism (principal); I50.43 Acute on chronic combined systolic (congestive) and diastolic (congestive) heart failure; J18.9 Pneumonia, unspecified organism; G93.40 Encephalopathy, unspecified; I48.92 Unspecified atrial flutter; I47.2 Ventricular tachycardia; E44.0 Moderate protein-calorie malnutrition; E78.00 Pure hypercholesterolemia, unspecified; E78.5 Hyperlipidemia, unspecified; F02.80 Dementia in other diseases classified elsewhere, unspecified severity, without behavioral disturbance, psychotic disturbance, mood disturbance, and anxiety; G30.9 Alzheimer's disease, unspecified; I11.0 Hypertensive heart disease with heart failure; I25.10 Atherosclerotic heart disease of native coronary artery without angina pectoris; I25.2 Old myocardial infarction; I25.5 Ischemic cardiomyopathy; I34.0 Nonrheumatic mitral (valve) insufficiency; I37.1 Nonrheumatic pulmonary valve insufficiency; I45.10 Unspecified right bundle-branch block; I48.0 Paroxysmal atrial fibrillation; I95.9 Hypotension, unspecified; K21.9 Gastro-esophageal reflux disease without esophagitis; I73.9 Peripheral vascular disease, unspecified; Z68.27 Body mass index [BMI] 27.0-27.9, adult; Z95.1 Presence of aortocoronary bypass graft
CPT/HCPCS: 36415; 70450; 70496; 70498; 71045; 74176; 80053; 80061; 81001; 82550; 82947; 83605; 83735; 83880; 84443; 84484; 85025; 85027; 85379; 85610; 85730; 87040; 93005; 96361; 96365; J1940; J1956; J3490; J7120; Q9967; 99285-25

== ENCOUNTER → 2021-06-16 | Outpatient (CLI) | payer MEDICARE, OTHER ==
[~2021-06-16] MED LIST: ACET500T68 PO; APIX5TAB5 PO; EZET1TAB35 PO; LISI-517 PO; MELA3TAB43 PO; METO-239 PO; MULT-245 PO; NIAC500C6 PO; NITR0.4T22 SL; OMEG1CAP38 PO; OMEP20CA16 PO; SPIR25TA5 PO; TORS20TA2 PO
--- NOTE | 2021-06-16 13:37 | RAD ---
EXAM: Abdomen and pelvis CT without intravenous contrast. HISTORY: Abnormal weight loss. TECHNIQUE: Computed tomographic images of the abdomen and pelvis were obtained without contrast. Mult iplanar reformatting was performed. *One or more of the following individualized dose reduction techniques were utilized for this examina tion: 1. Automated exposure control. 2. Adjustment of the mA and/or kV according to patient size. 3. Use of iterative reconstruction technique. COMPARISON: 04/05/2021. FINDINGS: Evaluation of the lower thorax demonstrates emphysema and pulmonary fibrosis with superimpo sed bilateral lower lobe, right middle lobe and lingular atelectasis or interstitial infiltrate. Ther e is no consolidation or pleural effusion. There is cardiomegaly. There are median sternotomy changes . There is a cardiac pacemaker. There is left sided gynecomastia. No hepatic lesion is seen. The gallbladder is absent. The pancreas is unremarkable. The spleen is nor mal in size. There is a suspected small benign right adrenal adenoma or nodular thickening of the rig ht adrenal gland. There are small renal cortical cysts. There are superimposed tiny hypodense lesions within the lateral lower mid zone of the right kidney and posterior mid zone of the left kidney, lik yg due to hemorrhagic cysts. There is no hydronephrosis. There is extensive colonic diverticulosis. There is no evidence of diverticulitis. The prostate and s eminal vesicles are enlarged. There is mild bladder wall thickening. There is a small right inguinal hernia containing fat. There is heavily calcified atherosclerotic plaque involving the aorta and main aortic branch vessels. No aneurysm is seen. No pathologically enlarged lymph node is seen. There is a sclerotic lesion within the sacrum to the left of midline. There is bone demineralization. There ar e degenerative changes throughout the spine and both hips. IMPRESSION: 1. Extensive colonic diverticulosis. There is no evidence of diverticulitis. 2. Prostatomegaly and enlarged seminal vesicles. Correlate with PSA levels. There is urinary bladder wall thickening which is likely due to a component of chronic outlet obstruction. 3. 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 Evaluation for solid lesions is limited i n the absence of contrast. Renal sonography can be performed to confirm benignity. 4. Pulmonary emphysema and fibrosis with superimposed lower lobe predominant atelectasis or interstit ial infiltrate. There is no consolidated pneumonia. 5. Small fat-containing right inguinal hernia. 6. Stable sclerotic lesion within the sacrum. The differential includes a bone island as well as osse ous metastasis. Correlation with remote prior studies may be useful to confirm longer-term stability. Electronically signed by: Laura Da Silva MD (06/16/2021 1:35 PM) [id number]
== END ==
LOC: CT 12:51
PROVIDERS: ATTEND Family Medicine
DX: K57.30 Diverticulosis of large intestine without perforation or abscess without bleeding (principal); J43.9 Emphysema, unspecified; N28.1 Cyst of kidney, acquired; K40.30 Unilateral inguinal hernia, with obstruction, without gangrene, not specified as recurrent; J84.10 Pulmonary fibrosis, unspecified
CPT/HCPCS: 74176